=== PATIENT | female | born 1985 | race Caucasian/White ===

== ENCOUNTER 2021-05-23 10:23 | Emergency (ER) | payer BC, SELFPAY ==
[~2021-05-23] VITALS: Ht 157.5 cm; Wt 59.0 kg
[2021-05-23 10:25] VITALS: BP_SYST 120
--- NOTE | 2021-05-23 10:25 | NUR ---
Patient to ER bed tent1 to gown for evaluation. Side rails up.
--- NOTE | 2021-05-23 10:27 | NUR ---
ER at bedside examining patient.
--- NOTE | 2021-05-23 10:30 | NUR ---
PT C/O COUGH AND EXPOSURE TO COVID POS FAMILY MEMBER.PT HAS NO ACUTE DISTRESS NOTED.
[2021-05-23 10:45] VITALS: BP_SYST 120
--- NOTE | 2021-05-23 10:45 | NUR ---
Patient given written and verbal discharge instructions and verbalizes understanding. ER MD discussed with patient the results and treatment provided. Patient in stable condition. ID arm band removed. NO Rx given. Patient educated on pain management and to follow up with PMD. Pain Scale 0. Opportunity for questions provided and answered. Medication side effect fact sheet provided.
== END 2021-05-23 10:45 | disposition home or self-care (01) ==
LOC: SED 10:23
DX: J06.9 Acute upper respiratory infection, unspecified (principal); Z20.822 Contact with and (suspected) exposure to COVID-19
CPT/HCPCS: 99283; U0003; C9803